=== PATIENT | female | born 1975 | race Caucasian/White ===

== ENCOUNTER 2017-03-04 20:38 | Emergency (ER) | payer SELFPAY ==
[2017-03-04 20:46] VITALS: BP 139/83
[2017-03-05] MEDS ORDERED: DIPH/PERTUSS(ACELL)/TETANUS VAC/PF 0.5 ML SYR (>=10YO) IM ONE (00:22)
[2017-03-05] MEDS ORDERED: TRAMADOL HCL 50 MG TABLET PO ONE (00:22)
--- NOTE | 2017-03-05 00:25 | ER Document Report ---
ED General - General Chief Complaint: Arm Pain Stated Complaint: ARM INJURY Notes: Patient is a 41-year-old female presents with complaint of pain over the right elbow after she slipped and fell onto the porch. She says the screw did poke her in the elbow. She denies any redness. She has some pain with movement. She is still able to move her elbow but has some pain in doing so. She denies any other injuries. Did not hit her head. No pain in her wrist or hand. No pain in her shoulder. TRAVEL OUTSIDE OF THE [place] IN LAST 30 DAYS: No - Related Data Allergies/Adverse Reactions: No Known Allergies Allergy (Unverified 03/04/17 20:42) Past Medical History - Social History Smoking Status: Never Smoker Frequency of alcohol use: None Drug Abuse: None Family History: Reviewed & Not Pertinent Patient has suicidal ideation: No Patient has homicidal ideation: No Renal/ Medical History: Denies: Hx Peritoneal Dialysis Review of Systems - Review of Systems Notes: My Normal Review Basic REVIEW OF SYSTEMS: CONSTITUTIONAL : Denies fever, chills, or sweats. Denies recent illness. MUSCULOSKELETAL: Pain of the right elbow. SKIN: Denies rash or skin lesions.. NEUROLOGICAL: Denies altered mental status or loss of consciousness. Denies headache. Denies weakness or paralysis or loss of use of either side. Denies problems with gait or speech. Denies sensory or motor loss. ALL OTHER SYSTEMS REVIEWED AND NEGATIVE. Physical Exam - Vital signs Vitals: Temp Pulse Resp BP Pulse Ox 98.6 F 100 18 139/83 H 98 03/04/17 20:42 03/04/17 20:42 03/04/17 20:42 03/04/17 20:42 03/04/17 20:42 - Notes Notes: General Appearance: Well nourished, alert, cooperative, no acute distress, mild to moderate obvious discomfort. Vitals: reviewed, See vital signs table. Head: no swelling or tenderness to the head Eyes: PERRL, EOMI, Conjuctiva clear Mouth: No decreasd moisture Extremities: strength 5/5 in all extremities, good pulses in all extremities, patient does have pain to palpation over the right elbow. Is mainly where the screws punctured the skin. This no redness. She has minimal swelling. She's able fully flex and extend her elbow but does have some pain in doing so. She is able to supinate and pronate the forearm. No edema. The puncture wounds over the elbow are superficial puncture wounds. No active bleeding. Skin: warm, dry, appropriate color, no rash Neuro: speech clear, oriented x 3, normal affect, responds appropriately to questions. Course - Vital Signs Vital signs: Temp Pulse Resp BP Pulse Ox 98.6 F 100 18 139/83 H 98 03/04/17 20:42 03/04/17 20:42 03/04/17 20:42 03/04/17 20:42 03/04/17 20:42 - Transfer of Care Notes: 03/05/17 05:34 I did thoroughly irrigate the wounds. I did clean them. Then applied Xeroform gauze dressing over the wounds. Informed her that if she develops any redness or swelling over the elbow she must return to ER immediately. I did give her some for comfort. X-ray showed no evidence of fracture. Patient agrees with plan will be discharged home. Dictation of this chart was performed using voice recognition software; therefore, there may be some unintended grammatical errors. Discharge - Discharge Clinical Impression: Puncture wound Contusion of elbow, right Qualifiers: Encounter type: initial encounter Qualified Code(s): S50.01XA - Contusion of right elbow, initial encounter Condition: Good Disposition: HOME, SELF-CARE Additional Instructions: Please return to the ER immediately if you develop any redness or swelling to the elbow, increasing pain, or feel unwell. Rarely an xray can miss a small crack to one of the bones in your elbow. Because of this possibility you should return to the ER or your doctor in 1 week for reevaluation and potential repeat xrays if you are still having significant pain. Prescriptions: Tramadol HCl 50 mg PO Q6 PRN #14 tablet PRN Reason: For Pain Scale 2-3 Forms: Return to Work
== END 2017-03-05 00:50 | disposition home or self-care (01) ==
LOC: ER 20:38
DX: S51.031A Puncture wound without foreign body of right elbow, initial encounter (principal); S50.01XA Contusion of right elbow, initial encounter; M25.521 Pain in right elbow; W01.0XXA Fall on same level from slipping, tripping and stumbling without subsequent striking against object, initial encounter
CPT/HCPCS: 99283

== ENCOUNTER 2017-12-29 08:53 | Day surgery (SDC) | payer BC, OTHER ==
[2017-12-29] MEDS ORDERED: PROPOFOL INJ 200 MG/20 ML VIAL IV ONE ×2 (11:09→11:45)
[2017-12-29] MEDS ORDERED: DIPHENHYDRAMINE HCL 50 MG/ML VIAL IV PRN (11:32)
[2017-12-29] MEDS ORDERED: PROMETHAZINE HCL INJ 25 MG/1 ML VIAL IV PRN ×2 (11:32)
[2017-12-29] MEDS ORDERED: FENTANYL CITRATE INJ/PF 100 MCG/2 ML AMPUL IV PRN ×3 (11:32)
[2017-12-29] MEDS ORDERED: MORPHINE SULFATE 10 MG/ML INJ IV PRN (11:32)
[2017-12-29] MEDS ORDERED: MEPERIDINE HCL/PF INJ 25 MG/1 ML DISP.SYRIN IV PRN (11:32)
--- NOTE | 2017-12-29 11:39 | Operative Report ---
Operative Report DATE OF SURGERY: 12/29/17 Operative Report: The risks, benefits and alternatives of the procedure including risks of bleeding, perforation requiring surgery are explained to the patient detail and informed consent was obtained. Patient was taken to the operating room and placed in a left, lateral decubital position. Timeout was called. Propofol medications administered. A rectal examination is done which did not reveal any masses, tears or fissures. An Olympus videoscope was inserted into the patient's rectum. This is carefully advanced all the way to the cecum. The cecum was identified by the usual anatomical landmarks including the ileocecal valve as well as the appendiceal office. Photodocumentation is obtained. Prep is good. Intubation of the terminal ileum is done. The scope was then sequentially pulled back via the various segments of the colon including the ascending colon, hepatic flexure, transverse colon, splenic flexure, descending colon finding to the rectosigmoid portions of the colon. Retroflexion maneuvers performed. The risks benefits and alternatives of the procedure explained to the patient in detail and informed consent is obtained.A GIF Olympus video scope was inserted into the patient's mouth and hypopharynx, the esophagus is identified intubated and insufflated, the scope was then advanced through the esophagus stomach and duodenum, retroflexion maneuver is done, the esophagus stomach and first and second portions of the duodenum examined PREOPERATIVE DIAGNOSIS: Change of bowel habits. Anorexia, dyspepsia POSTOPERATIVE DIAGNOSIS: Gastritis status post biopsy rule out Helicobacter pylori. Terminal ileitis status post biopsy rule out Crohn's. Mild right- sided inflammation status post biopsy rule out lymphocytic, microscopic, collagenous colitis. OPERATION: Colonoscopy with biopsy. EGD with biopsy SURGEON: MARLO GIPSON ANESTHESIA: LMAC TISSUE REMOVED OR ALTERED: As noted above. COMPLICATIONS: None. ESTIMATED BLOOD LOSS: None. INTRAOPERATIVE FINDINGS: As noted above. PROCEDURE: Patient of the procedure well. No immediate postprocedure complications are noted. Patient discharged in good condition. Discharge date 12/29/2017. Discharge diet: Regular. Discharge activity: Regular. 2-3 week follow-up to discuss findings. Patient is instructed call the office or proceed to the emergency room should there be any further problems or questions. We will await pathology.
[2017-12-29 13:08] VITALS: BP 141/83
== END 2017-12-29 13:05 | disposition home or self-care (01) ==
LOC: OROUT 08:53
PROVIDERS: ATTEND Internal Medicine Gastroenterology
PROC: 0DBF8ZX Excision of Right Large Intestine, Via Natural or Artificial Opening Endoscopic, Diagnostic (ICD-10-PCS; 2017-12-29)
PROC: 0DB68ZX Excision of Stomach, Via Natural or Artificial Opening Endoscopic, Diagnostic (ICD-10-PCS; principal; 2017-12-29 11:00)
PROC: 0DBB8ZX Excision of Ileum, Via Natural or Artificial Opening Endoscopic, Diagnostic (ICD-10-PCS; 2017-12-29 11:00)
DX: K52.9 Noninfective gastroenteritis and colitis, unspecified (principal); K29.70 Gastritis, unspecified, without bleeding; R63.0 Anorexia; E03.9 Hypothyroidism, unspecified; K76.0 Fatty (change of) liver, not elsewhere classified; K76.89 Other specified diseases of liver; R94.5 Abnormal results of liver function studies; Z79.899 Other long term (current) drug therapy; Z91.040 Latex allergy status; Z68.28 Body mass index [BMI] 28.0-28.9, adult
CPT/HCPCS: 43239; 45380; 81025; 88342 ×2; 88305 ×2; J2704; 813

== ENCOUNTER → 2018-05-11 | Outpatient (CLI) | payer OTHER ==
[2018-05-11 15:25] LABS: ABSOLUTE EOSINOPHILS # (AUTO) 0.1 10^3/uL (0.0-0.6); ABSOLUTE LYMPHOCYTES (AUTO) 0.4 10^3/uL (0.5-4.7); ABSOLUTE MONOCYTES (AUTO) 0.5 10^3/uL (0.1-1.4); ABSOLUTE NEUT (AUTO) 2.1 10^3/uL (1.7-8.2); BASOPHILS % (AUTO) 0.4 % (0-2); EOSINOPHILS % (AUTO) 2.6 % (0-6); HEMATOCRIT 35.6 % (36.0-47.0); HEMOGLOBIN 12.5 g/dL (12.0-15.5); LYMPHOCYTES % (AUTO) 13.9 % (13-45); MEAN CORPUSCULAR HEMOGLOBIN 38.6 pg (27.0-33.4); MEAN CORPUSCULAR VOLUME 110 fl (80-97); MONOCYTES % (AUTO) 15.7 % (3-13); RED BLOOD COUNT 3.23 10^6/uL (3.72-5.28); RED CELL DISTRIBUTION WIDTH 14.9 % (11.5-14.0); SEGMENTED NEUTROPHILS % (AUTO) 67.4 % (42-78); TOTAL CELLS COUNTED % (AUTO) 100 %; WHITE BLOOD COUNT 3.1 10^3/uL (4.0-10.5)
[2018-05-11 15:46] LABS: ALANINE AMINOTRANSFERASE 82 U/L (9-52); ALBUMIN 4.3 g/dL (3.5-5.0); ALKALINE PHOSPHATASE 82 U/L (38-126); ANION GAP 17 (5-19); ASPARTATE AMINO TRANSFERASE 229 U/L (14-36); BILIRUBIN,DIRECT 0.6 mg/dL (0.0-0.4); BILIRUBIN,TOTAL 1.2 mg/dL (0.2-1.3); BLOOD UREA NITROGEN 6 mg/dL (7-20); CALCIUM 8.8 mg/dL (8.4-10.2); CARBON DIOXIDE 25 mmol/L (22-30); CHLORIDE 102 mmol/L (98-107); GLUCOSE 80 mg/dL (75-110); POTASSIUM 3.8 mmol/L (3.6-5.0); SODIUM 143.9 mmol/L (137-145); TOTAL PROTEIN 7.4 g/dL (6.3-8.2)
[2018-05-11 16:05] LABS: PLATELET COUNT 81 10^3/uL (150-450)
[2018-05-11 16:09] LABS: ANISOCYTOSIS SLIGHT; PLATELET COMMENT DECREASED; POIKILOCYTOSIS SLIGHT; TEAR DROP CELLS SLIGHT
== END ==
LOC: OD 14:27
PROVIDERS: ATTEND Internal Medicine Nephrology
DX: Q61.2 Polycystic kidney, adult type (principal)
CPT/HCPCS: 36415; 80053; 85025

== ENCOUNTER → 2018-05-18 | Outpatient (CLI) | payer OTHER ==
[2018-05-18 14:21] LABS: HEMATOCRIT 36.1 % (36.0-47.0); HEMOGLOBIN 12.6 g/dL (12.0-15.5); MEAN CORPUSCULAR HEMOGLOBIN 38.5 pg (27.0-33.4); MEAN CORPUSCULAR HGB CONC 34.8 g/dL (32.0-36.0); RED BLOOD COUNT 3.27 10^6/uL (3.72-5.28); RED CELL DISTRIBUTION WIDTH 15.3 % (11.5-14.0); WHITE BLOOD COUNT 4.3 10^3/uL (4.0-10.5)
[2018-05-18 14:38] LABS: ALANINE AMINOTRANSFERASE 127 U/L (9-52); ALBUMIN 4.2 g/dL (3.5-5.0); ALKALINE PHOSPHATASE 99 U/L (38-126); ANION GAP 12 (5-19); ASPARTATE AMINO TRANSFERASE 393 U/L (14-36); BILIRUBIN,DIRECT 0.7 mg/dL (0.0-0.4); BILIRUBIN,TOTAL 1.4 mg/dL (0.2-1.3); BLOOD UREA NITROGEN 7 mg/dL (7-20); CALCIUM 8.9 mg/dL (8.4-10.2); CARBON DIOXIDE 29 mmol/L (22-30); CHLORIDE 102 mmol/L (98-107); GLUCOSE 83 mg/dL (75-110); POTASSIUM 4.1 mmol/L (3.6-5.0); SODIUM 143.3 mmol/L (137-145); TOTAL PROTEIN 7.4 g/dL (6.3-8.2)
[2018-05-18 14:44] LABS: PLATELET COUNT 80 10^3/uL (150-450)
[2018-05-18 14:47] LABS: ABSOLUTE LYMPHOCYTES# (MANUAL) 0.8 10^3/uL (0.5-4.7); ABSOLUTE MONOCYTES # (MANUAL) 0.2 10^3/uL (0.1-1.4); ABSOLUTE NEUTROPHILS# (MANUAL) 3.2 10^3/uL (1.7-8.2); ANISOCYTOSIS SLIGHT; BAND NEUTROPHILS % (MANUAL) 2 % (3-5); BASOPHILS % (MANUAL) 0 % (0-2); EOSINOPHILS % (MANUAL) 2 % (0-6); HYPOCHROMASIA SLIGHT; LYMPHOCYTES % (MANUAL) 19 % (13-45); MONOCYTES % (MANUAL) 4 % (3-13); OVALOCYTES SLIGHT; PLATELET COMMENT DECREASED; POIKILOCYTOSIS SLIGHT; POLYCHROMASIA 1+; SEGMENTED NEUTROPHILS % (MAN) 73 % (42-78); TOTAL CELLS COUNTED 100
[2018-05-18 14:48] LABS: MEAN CORPUSCULAR VOLUME 111 fl (80-97)
[2018-05-21 13:26] LABS: PATH REVIEW PATHOLOGIST REVIEWED
== END ==
LOC: OD 13:26
PROVIDERS: ATTEND Nurse Practitioner Primary Care
DX: D61.818 Other pancytopenia (principal); D69.6 Thrombocytopenia, unspecified; D58.1 Hereditary elliptocytosis
CPT/HCPCS: 36415; 80053; 85025; 88184; 88185